=== PATIENT | male | born 1995 | race Caucasian/White ===

== ENCOUNTER → 2018-11-09 | Outpatient (CLI) | payer BC ==
[2018-11-09 12:52] LABS: COLLECTION METHOD DRY COLLECTION; SPECIMEN CONTAINER POLYPROPYLENE CUP; SPERM MORPHOLOGY SENT TO REFERENC LAB
[2018-11-09 13:23] LABS: COLLECTION SITE ON-SITE; DAYS ABSTINENT 4 DAYS (2-7); ROUND CELL CONC. 0.7 X10^6/mL (<5.1); SA DILUTION CNT 1 185; SA DILUTION CNT 2 190; SA DILUTION FACTOR 2; SA NONMOTILE CONCENTRATION 8.3 X10^6/mL; SA NONMOTILE COUNT1 85; SA NONMOTILE COUNT2 81; SA ROUND CELL COUNT1 5; SA ROUND CELL COUNT2 8; SA SPERM MOTILE CONC 29.2 X10^6mL; SEMEN TESTING TIME 1245; SPERM CONCENTRATION 37.5 X10^6/mL (>12.0); TOTAL SPERM COUNT 153.8 X10^6 (>33.0)
[2018-11-09 13:24] LABS: SPERM PROGRESSION 3
== END ==
LOC: LAB 12:35
PROVIDERS: ATTEND Obstetrics & Gynecology Gynecology
DX: N46.11 Organic oligospermia (principal)
CPT/HCPCS: 89320